=== PATIENT | female | born 1945 | race Caucasian/White ===

== ENCOUNTER 2020-06-09 09:04 | Emergency (ER) | payer MEDICARE, BC ==
--- NOTE | 2020-06-09 09:38 | EDM.PDOC ---
ED HPI GENERAL MEDICAL PROBLEM - General Chief Complaint: Lower Extremity Injury/Pain Stated Complaint: RT KNEE PAIN Time Seen by Provider: 06/09/20 09:38 - History of Present Illness INITIAL COMMENTS - FREE TEXT/NARRATIVE: 74-year-old female presents the emergency room with right knee pain. On Friday the patient was going up some steps and her left foot slipped on some ice she caught herself but her right lower leg flexed back hard. She did not bump her knee. She did not hear a pop or a snap. She has some swelling around her kneecap. She has been using some Tylenol 1-1/2 extra strength twice daily and some ibuprofen 600 mg twice daily. She has not experienced her knee locking up or giving out on her. The patient is visiting here from [place] and is expecting to go home on Friday and she is wondering if she can make the car trip or if she needs to fly home. Currently she is taking medication for hyperlipidemia - Related Data Allergies Allergy/AdvReac Type Severity Reaction Status Date / Time Penicillins Allergy Hives Verified 06/09/20 09:19 Home Meds: Home Meds Calcium Carbonate [Calcium] 1 tab PO DAILY 06/09/20 [History] Cholecalciferol (Vitamin D3) [Vitamin D3] 1 tab PO DAILY 06/09/20 [History] Ezetimibe [Zetia] 5 mg PO DAILY 06/09/20 [History] [place]-3/DHA/Epa/Fish Oil [Fish Oil 1,000 mg Softgel] 1 tab PO DAILY 06/09/20 [History] Rosuvastatin [Crestor] 10 mg PO DAILY 06/09/20 [History] Past Medical History Cardiovascular History: Reports: High Cholesterol - Infectious Disease History Infectious Disease History: Reports: None - Past Surgical History Female Surgical History: Reports: Hysterectomy Musculoskeletal Surgical History: Reports: Other (See Below) Other Musculoskeletal Surgeries/Procedures:: "meniscus trim" Social & Family History - Family History Family Medical History: No Pertinent Family History - Tobacco Use Tobacco Use Status *Q: Never Tobacco User - Recreational Drug Use Recreational Drug Use: No Review of Systems - Review of Systems Review Of Systems: See Below Constitutional: Reports: No Symptoms Respiratory: Reports: No Symptoms Cardiovascular: Reports: No Symptoms GI/Abdominal: Reports: No Symptoms ED EXAM, GENERAL - Physical Exam Exam: See Below Exam Limited By: No Limitations General Appearance: Alert, No Apparent Distress Respiratory/Chest: No Respiratory Distress, Lungs Clear, Normal Breath Sounds Cardiovascular: Regular Rate, Rhythm, No Edema, No Murmur Extremities: Other (Right knee shows some swelling around the patella seems to be slightly worse on the medial aspect than the lateral aspect she has some ecchymosis on the medial aspect as well. The patient has some tenderness with flexion of the knee at this spot. Ligamentous testing shows a intact ACL MCL and LCL. Meniscal testing is difficult because she has tenderness under the patella. 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 At this point we will discharge the patient with recommendations to use Tylenol 1000 mg every 6 hours for discomfort. 06/09/20 14:28 Patient was discharged I did get the x-ray report of her knee and radiology thought there was a questionable fracture of the describes minimally impacted fracture within the lateral tibial plateau and they recommended consider CT for further evaluation. I did call the patient discussed this with her. She wished to pursue a CT to have this further evaluated. She did come in and we obtained an outpatient CT without contrast and fortunately this did not show a fracture she is got significant degenerative changes as that we knew about and a small joint effusion which we suspected but no fracture was appreciated. I did discuss the CT results with the patient and she was relieved to be sure there was no fracture. She will continue using Tylenol as we discussed Departure - Departure Time of Disposition: 10:57 Disposition: Home, Self-Care 01 Clinical Impression: Right knee injury - Discharge Information Instructions: Knee Sprain, Adult Referrals: PCP,Not In Area [Primary Care Provider] - Forms: ED Department Discharge Additional Instructions: Return to the emergency room with any questions problems or worsening symptoms. Use Tylenol 1000 mg 4 times a day for discomfort. Follow-up with your regular healthcare provider or your orthopedic surgeon for follow-up when you get home. Sepsis Event Note (ED) - Evaluation Sepsis Screening Result: No Definite Risk - Focused Exam Vital Signs: Vital Signs Temp Pulse Resp BP Pulse Ox 06/09/20 10:52 135/72 06/09/20 09:12 36.1 C 87 18 175/80 H 97
--- NOTE | 2020-06-09 12:46 | CR ---
Right knee: 3 views of the right knee were obtained. Comparison: No previous knee study is available. Findings: Narrowing is noted on the medial joint space. Osteophytes are seen laterally. Small joint effusion is present. Difficult to completely exclude a minimal impacted fracture within the lateral tibial plateau. Impression: 1. Lateral joint space narrowing with lateral osteophytes. 2. Findings questionable for minimal impacted fracture within the lateral tibial plateau. Consider CT to further evaluate. 3. Small joint effusion. Diagnostic code #3
== END 2020-06-09 11:04 | disposition home or self-care (01) ==
LOC: JD.ED 09:04
DX: S80.01XA Contusion of right knee, initial encounter (principal); E78.00 Pure hypercholesterolemia, unspecified; E78.5 Hyperlipidemia, unspecified; Z88.0 Allergy status to penicillin; Z79.899 Other long term (current) drug therapy; X50.1XXA Overexertion from prolonged static or awkward postures, initial encounter
CPT/HCPCS: 73562-26-RT; 73562-RT; 99283